=== PATIENT | male | born 1960 | race African-American/Black ===

== ENCOUNTER 2016-12-19 10:35 | Emergency (ER) | payer SELFPAY ==
[~2016-12-19] VITALS: Ht 185.4 cm; Wt 74.8 kg
[~2016-12-19 10:35] MED LIST: FAMO-63 PO; HYDR-971 PO; ONDA4TAB10 SL
--- NOTE | 2016-12-19 11:58 | RAD ---
Indication injury 2 weeks previously. Persistent head and neck pain. The head and cervical spine were evaluated. Images of cervical spine were reformatted in the coronal and sagittal planes. Note is made of a previous examination of the head [address] head: Findings The calvarium appears unremarkable. The visualized paranasal sinuses appear normal. There is no subdural or epidural hematoma. Ventricles and sulci are normal. No mass or midline shift is seen. There is no hemorrhage. Acute intracranial finding is not seen. CT cervical spine: Findings. There are underlying emphysematous changes in the visualized lung apices. A significant soft tissue finding in the neck is not seen. There are moderately advanced spondylitic changes in the cervical spine. There is multilevel disc space narrowing. Large osteophytes are seen at multiple levels. There is a suggested protruding disc at C3-4 with an additional suggested protruding disc at C5-6. (If further imaging of the cervical spine is warranted an MRI examination could be obtained.) There is mild bilateral bony neural foraminal encroachment at C3-4 and on the right at C5-6 with slight bilateral foraminal encroachment at C6-7. An acute finding in the cervical spine is not seen. IMPRESSION: Significant spondylitic changes in the cervical spine. An acute bony finding is not seen. No acute finding seen intracranially PQRS Compliance Statement: One or more of the following individualized dose reduction techniques were utilized for this examination: 1. Automated exposure control 2. Adjustment of the mA and/or kV according to patient size 3. Use of iterative reconstruction technique
[2016-12-19] MEDS ORDERED: CYCL10TA2 PO (12:57)
[2016-12-19] MEDS ORDERED: NAPR250T2 PO (12:57)
[2016-12-19] MEDS ORDERED: ESCI10TA PO (12:57)
[2016-12-19 13:22] VITALS: BP 127/75
--- NOTE | 2016-12-19 16:14 | ED.ADGEN ---
Past Medical History Past Medical History: Asthma, P.U.D. Past Surgical History: Other Additional Past Surgical Histo: ABDOMINAL/STOMACH SURG(hole in stomach) Alcohol Use: Occasionally Drug Use: None Adult General Chief Complaint Chief Complaint: MULTIPLE COMPLAINTS HPI HPI Patient is a 56 year old man, history of asthma, who presents to the emergency department for evaluation from his Worker's Compensation physician with report of persistent headache and neck pain after being struck with a package on the left side of the head at work 13 days ago. Patient denies any loss of consciousness at the time, stating he immediately had a headache, and some neck pain, he states that he was evaluated initially by the physician, and then on 12 December, he states that he was still having headache and some neck pain, and came back in for reevaluation today, continues to have the same symptoms although he states the headache "is now all over the head", and he is experiencing blurry vision at times. Denies any weakness numbness or tingling, is complaining of pain throughout the left side of his neck radiating down into the left shoulder. Denies any previous symptoms, any other injuries, any drugs alcohol or cigarettes, any other complaints. He states that he cannot recall the size of the package or how high it was when it struck him. 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 Patient does not take any medications regular basis, is not taking any medications for pain prior to coming to the ED. He states he was previously treated with naproxen and cyclobenzaprine without relief. Patient smokes cigarettes daily, denies any drugs or alcohol. Review of Systems Review of Systems Constitutional: Denies fever or chills. [] Eyes: Denies change in visual acuity. [] HENT: Denies nasal congestion or sore throat. [] Respiratory: Denies cough or shortness of breath. [] Cardiovascular: Denies chest pain or edema. [] GI: Denies abdominal pain, nausea, vomiting, bloody stools or diarrhea. [] : Denies dysuria. [] Musculoskeletal: Denies back pain or joint pain. [] Integument: Denies rash. [] Neurologic: Denies focal weakness or sensory changes. [] Headache "all over the head", bilateral intermittent blurry vision. Endocrine: Denies polyuria or polydipsia. [] Lymphatic: Denies swollen glands. [] Psychiatric: Denies depression or anxiety. [] Allergies Allergies Allergies Coded Allergies Type Severity Reaction Last Updated Verified No Known Drug Allergies 02/27/16 No Physical Exam Physical Exam Constitutional: Well developed, well nourished, no acute distress, non-toxic appearance. [] HENT: Normocephalic, atraumatic, bilateral external ears normal, oropharynx moist, no oral exudates, nose normal. [] Eyes: PERRLA, EOMI, conjunctiva normal, no discharge. [] Neck: Normal range of motion, patient with tenderness to palpation throughout the left paraspinal muscles, also less midline, no crepitus or step-offs are identified c-collar placed and patient complaints, no stridor. [] Cardiovascular:Heart rate regular rhythm, no murmur, S1, S2, rubs or gallops. [] Lungs & Thorax: Bilateral breath sounds clear to auscultation, no wheezing, rhonchi, rales. No chest tenderness or crepitus. [] Abdomen: Bowel sounds normal, soft, no tenderness, no masses, no pulsatile masses. [] Skin: Warm, dry, no erythema, no rash. [] Back: No tenderness, no CVA tenderness. [] Extremities: No tenderness, no cyanosis, no clubbing, ROM intact, no edema. [] Neurologic: Alert and oriented X 3, normal motor function, normal sensory function, no focal deficits noted. [] Psychologic: Affect normal, judgement normal, mood normal. [] Visual acuity: 20/70 bilaterally, no change in the mild blurry vision from eye to eye. Patient does not wear glasses but it has been sometime since a eye exam was performed. Current Patient Data Vital Signs Vital Signs Date Time Temp Pulse Resp B/P Pulse Ox O2 Delivery O2 Flow Rate FiO2 12/19/16 13:22 59 18 127/75 98 Room Air 12/19/16 10:47 98.2 98.2 EKG EKG Not indicated. [] Radiology/Procedures Radiology/Procedures [] [facility] [address] [place] [address] IMAGING REPORT Signed PATIENT: KENISHA GIBBONS ACCOUNT: [id number] : 1960 LOCATION: ER AGE: 56 SEX: M EXAM STATUS: REG ER ORD. PHYSICIAN: PHIL MURO DO REASON: HODGE/blurred vision after head injury 12/06 PROCEDURE: HEAD AND CERVICAL SPINE WO Indication injury 2 weeks previously. Persistent head and neck pain. The head and cervical spine were evaluated. Images of cervical spine were reformatted in the coronal and sagittal planes. Note is made of a previous examination of the head [address] head: Findings The calvarium appears unremarkable. The visualized paranasal sinuses appear normal. There is no subdural or epidural hematoma. Ventricles and sulci are normal. No mass or midline shift is seen. There is no hemorrhage. Acute intracranial finding is not seen. CT cervical spine: Findings. There are underlying emphysematous changes in the visualized lung apices. A significant soft tissue finding in the neck is not seen. There are moderately advanced spondylitic changes in the cervical spine. There is multilevel disc space narrowing. Large osteophytes are seen at multiple levels. There is a suggested protruding disc at C3-4 with an additional suggested protruding disc at C5-6. (If further imaging of the cervical spine is warranted an MRI examination could be obtained.) There is mild bilateral bony neural foraminal encroachment at C3-4 and on the right at C5-6 with slight bilateral foraminal encroachment at C6-7. An acute finding in the cervical spine is not seen. IMPRESSION: Significant spondylitic changes in the cervical spine. An acute bony finding is not seen. No acute finding seen intracranially PQRS Compliance Statement: One or more of the following individualized dose reduction techniques were utilized for this examination: 1. Automated exposure control 2. Adjustment of the mA and/or kV according to patient size 3. Use of iterative reconstruction technique DICTATED and SIGNED BY: SHUKRI RICKS MD DATE: 12/19/16 1145 CC: PHIL MURO DO; NO PCP ~ Course & Med Decision Making Course & Med Decision Making Pertinent Labs and Imaging studies reviewed. (See chart for details) Due to patient's complaints and the persistence of the symptoms, with mechanism injury, c-collar was placed, and patient received CT of the head and neck after discussion of risk versus benefit. CT of head and neck did not reveal any evidence of acute abdomen abnormalities, patient noted to have some degenerative disease of the spine. Results were discussed with patient and detailed bedside. C-collar was cleared. I discussed findings as above with Dr. Desai of neurology, patient's symptoms are consistent with a postconcussive syndrome, he states that he recommends following up with the patient's Worker's Compensation physician for referral to vestibular physical therapy, and starting the patient on Escitalopram 10 mg to assist with symptoms. I did discuss these recommendations with the patient at bedside in detail, patient is agreeable to starting the medication, using a conjunction with naproxen and cyclobenzaprine as needed, and following up with the Worker's Compensation physician for referral and additional evaluation as he'll require their clearance before returning to work. Patient discharged home in stable condition with recommendations as above along with precautions, which she voiced understanding and agreement, patient ambulating without difficulty upon exiting the ED. Dragon Disclaimer Dragon Disclaimer This electronic medical record was generated, in whole or in part, using a voice recognition dictation system. Departure Impression: Primary Impression: Post concussion syndrome Disposition: 01 HOME, SELF-CARE Condition: STABLE Scripts Escitalopram Oxalate 10 Mg Tablet1 Tab PO DAILY postconcussive headache #30 TAB Ref 0 Prov:PHIL MURO DO 12/19/16 Naproxen 250 Mg [id number] Mg PO BID PRN PAIN #10 Prov:PHIL MURO DO 12/19/16 Cyclobenzaprine Hcl 10 Mg [id number] Mg PO TID PRN MUSCLE PAIN #14 TAB Prov:PHIL MURO DO 12/19/16 PHIL MURO DO Dec 19, 2016 16:14
== END 2016-12-19 13:23 | disposition home or self-care (01) ==
LOC: ER 10:35
DX: F07.81 Postconcussional syndrome (principal); J45.909 Unspecified asthma, uncomplicated; F17.210 Nicotine dependence, cigarettes, uncomplicated
CPT/HCPCS: 70450; 72125; 99284-25

== ENCOUNTER → 2019-05-28 | Outpatient (CLI) | payer OTHER ==
[~2019-05-28] MED LIST changes: +CYCL10TA2 PO; +ESCITALOPRAM OX10 MG PO; +HYDR-3164 PO; -HYDR-971 PO; +NAPR250T6 PO
[2019-05-28 12:56] LABS: BASO # 0.1 x10^3/uL (0.0-0.2); BASO % 1 % (0-3); EOS # 0.2 x10^3/uL (0.0-0.7); EOS % 2 % (0-3); HEMATOCRIT 51.2 % (39.0-53.0); HEMOGLOBIN 17.3 g/dL (13.0-17.5); LYMPH # 2.5 x10^3/uL (1.0-4.8); LYMPH % 23 % (24-48); MEAN CORPUSCULAR HEMOGLOBIN 30 pg (25-35); MEAN CORPUSCULAR HGB CONC 34 g/dL (31-37); MEAN CORPUSCULAR VOLUME 90 fL (79-100); MONO # 0.6 x10^3/uL (0.0-1.1); MONO % 5 % (0-9); NEUT # 7.5 x10^3uL (1.8-7.7); NEUT % 69 % (31-73); PLATELET COUNT 143 x10^3/uL (140-400); RED BLOOD COUNT 5.71 x10^6/uL (4.30-5.70); RED CELL DISTRIBUTION WIDTH 14.3 % (11.5-14.5); WHITE BLOOD COUNT 10.8 x10^3/uL (4.0-11.0)
[2019-05-28 13:10] LABS: ALBUMIN 3.8 g/dL (3.4-5.0); ALBUMIN/GLOBULIN RATIO 1.1 (1.0-1.7); GFR 93.2; POTASSIUM 4.3 mmol/L (3.5-5.1); TOTAL BILIRUBIN 0.7 mg/dL (0.2-1.0); TOTAL PROTEIN 7.2 g/dL (6.4-8.2)
== END | disposition home or self-care (01) ==
LOC: LAB 12:18
PROVIDERS: ATTEND Psychiatry & Neurology Neurology with Special Qualifications in Child Neurology
DX: G44.309 Post-traumatic headache, unspecified, not intractable (principal)
CPT/HCPCS: 36415; 80053; 85025; 85651

== ENCOUNTER 2022-03-15 15:46 | Emergency (ER) | payer MEDICAID, OTHER ==
[~2022-03-15] VITALS: Ht 180.3 cm; Wt 72.7 kg
[~2022-03-15 15:46] MED LIST changes: +CYCL10TA19 PO; -CYCL10TA2 PO; +NAPR-699 PO; -NAPR250T6 PO
[2022-03-15 17:11] LABS: BASO % 1 % (0-3); EOS # 0.9 x10^3/uL (0.0-0.7); EOS % 12 % (0-3); HEMATOCRIT 51.6 % (39.0-53.0); HEMOGLOBIN 17.2 g/dL (13.0-17.5); LYMPH # 1.8 x10^3/uL (1.0-4.8); LYMPH % 23 % (24-48); MEAN CORPUSCULAR HEMOGLOBIN 29 pg (25-35); MEAN CORPUSCULAR HGB CONC 33 g/dL (31-37); MEAN CORPUSCULAR VOLUME 88 fL (79-100); MONO # 0.5 x10^3/uL (0.0-1.1); MONO % 7 % (0-9); NEUT # 4.4 x10^3/uL (1.8-7.7); NEUT % 57 % (31-73); PLATELET COUNT 137 x10^3/uL (140-400); RED BLOOD COUNT 5.86 x10^6/uL (4.30-5.70); RED CELL DISTRIBUTION WIDTH 13.1 % (11.5-14.5); WHITE BLOOD COUNT 7.8 x10^3/uL (4.0-11.0)
[2022-03-15 17:30] LABS: ALBUMIN/GLOBULIN RATIO 1.1 (1.0-1.7); CALCIUM 9.3 mg/dL (8.5-10.1); CREATININE 1.2 mg/dL (0.7-1.3); POTASSIUM 4.2 mmol/L (3.5-5.1); TOTAL BILIRUBIN 0.5 mg/dL (0.2-1.0); TOTAL PROTEIN 7.7 g/dL (6.4-8.2)
[2022-03-15] MEDS ORDERED: IPRATRPIUM/ALBUTEROL 0.5/2.5MG 3 ML NEBU. NEB ONE (17:45)
[2022-03-15] MEDS ORDERED: methylPREDNISolone SOD SUCC PF 125 MG/2 ML VIAL. IV ONE (17:45)
--- NOTE | 2022-03-15 18:16 | RAD ---
AP chest. HISTORY: Short of air, wheezing AP view was taken of the chest. There is no pneumothorax or pleural effusion. Lungs are clear. Heart is normal in size. There is arthritis in the shoulders more on the right than on the left. IMPRESSION: 1. No acute chest disease. Electronically signed by: Woodrow Reeder MD (03/15/2022 6:13 PM) [facility]
--- NOTE | 2022-03-15 18:25 | PHYS DOC ---
Past Medical History Past Medical History: Asthma, P.U.D. Past Surgical History: Other Additional Past Surgical Histo: ABDOMINAL/STOMACH SURG(hole in stomach) Smoking Status: Unknown if ever smoked Alcohol Use: Sober Drug Use: None General Adult EDM: Chief Complaint: WEAKNESS/GENERALIZED HPI: HPI: Patient is a 61 year old male who presents with cough " for a long time" with inspiratory expiratory wheezing and green mucus production. Patient states has been using all 3 of his inhalers at home. He is having generalized weakness. He denies chest pain, abdominal pain, nausea, vomiting, diarrhea, dizziness, headache, syncope, fever, numbness or tingling, focal weakness. He has a history of concussion, hypertension, high cholesterol, COPD, smoking, PUD. Review of Systems: Review of Systems: Constitutional: Denies fever or chills. [] Eyes: Denies change in visual acuity. [] HENT: +nasal congestion or denies sore throat. [] Respiratory: +cough or +shortness of breath. [] Cardiovascular: Denies chest pain or edema. [] GI: Denies abdominal pain, nausea, vomiting, bloody stools or diarrhea. [] : Denies dysuria. [] Musculoskeletal: Denies back pain or joint pain. +Generalized weakness[] Integument: Denies rash. [] Neurologic: Denies headache, focal weakness or sensory changes. [] Endocrine: Denies polyuria or polydipsia. [] Lymphatic: Denies swollen glands. [] Psychiatric: Denies depression or anxiety. [] Heart Score: C/O Chest Pain: No HEART Score for Chest Pain: HEART Score for Chest Pain Response (Comments) Value History Slighlty/Non-Suspicious 0 ECG Nonspecific Repolarizatio 1 Age >45 - < 65 1 Risk Factors 1 or 2 Risk Factors 1 Troponin < Normal Limit 0 Total 3 Risk Factors: Risk Factors: DM, Current or recent (<one month) smoker, HTN, HLP, family history of CAD, obesity. Risk Scores: Score 0 - 3: 2.5% MACE over next 6 weeks - Discharge Home Score 4 - 6: 20.3% MACE over next 6 weeks - Admit for Clinical Observation Score 7 - 10: 72.7% MACE over next 6 weeks - Early Invasive Strategies Current Medications: Current Medications Medications (Trade) Dose Ordered Sig/Emilie Start Time Stop Time Status Last Admin Dose Admin Albuterol/ Ipratropium (Duoneb) 6 ml 1X ONCE 03/15/22 17:45 03/15/22 17:46 DC 03/15/22 17:51 6 ML Methylprednisolone Sodium Succinate (SOLU-Medrol 125MG VIAL) 125 mg 1X ONCE 03/15/22 17:45 03/15/22 17:46 DC Allergies: Allergies: Allergies Coded Allergies Type Severity Reaction Last Updated Verified No Known Drug Allergies 02/27/16 No Physical Exam: PE: Constitutional: Well developed, well nourished, no acute distress, non-toxic appearance. [] HENT: Normocephalic, atraumatic, bilateral external ears normal, oropharynx moist, no oral exudates, nose normal. [] Eyes: PERRLA, EOMI, conjunctiva normal, no discharge. [] Neck: Normal range of motion, no tenderness, supple, no stridor. [] Cardiovascular:Heart rate regular rhythm, no murmur [] Lungs & Thorax: Bilateral breath sounds inspiratory expiratory wheezing and lower lobes diminished to auscultation [] Abdomen: Bowel sounds normal, soft, no tenderness, no masses, no pulsatile masses. [] Skin: Warm, dry, no erythema, no rash. [] Back: No tenderness, no CVA tenderness. [] Extremities: No tenderness, no cyanosis, no clubbing, ROM intact, no edema. [] Neurologic: Alert and oriented X 3, normal motor function, normal sensory function, no focal deficits noted. [] Psychologic: Affect normal, judgement normal, mood normal. [] Current Patient Data: Labs: Laboratory Tests Test 03/15/22 16:53 White Blood Count 7.8 x10^3/uL (4.0-11.0) Red Blood Count 5.86 x10^6/uL (4.30-5.70) H Hemoglobin 17.2 g/dL (13.0-17.5) Hematocrit 51.6 % (39.0-53.0) Mean Corpuscular Volume 88 fL (79-100) Mean Corpuscular Hemoglobin 29 pg (25-35) Mean Corpuscular Hemoglobin Concent 33 g/dL (31-37) Red Cell Distribution Width 13.1 % (11.5-14.5) Platelet Count 137 x10^3/uL (140-400) L Neutrophils (%) (Auto) 57 % (31-73) Lymphocytes (%) (Auto) 23 % (24-48) L Monocytes (%) (Auto) 7 % (0-9) Eosinophils (%) (Auto) 12 % (0-3) H Basophils (%) (Auto) 1 % (0-3) Neutrophils # (Auto) 4.4 x10^3/uL (1.8-7.7) Lymphocytes # (Auto) 1.8 x10^3/uL (1.0-4.8) Monocytes # (Auto) 0.5 x10^3/uL (0.0-1.1) Eosinophils # (Auto) 0.9 x10^3/uL (0.0-0.7) H Basophils # (Auto) 0.0 x10^3/uL (0.0-0.2) Sodium Level 138 mmol/L (136-145) Potassium Level 4.2 mmol/L (3.5-5.1) Chloride Level 101 mmol/L (98-107) Carbon Dioxide Level 28 mmol/L (21-32) Anion Gap 9 (6-14) Blood Urea Nitrogen 18 mg/dL (8-26) Creatinine 1.2 mg/dL (0.7-1.3) Estimated GFR (Cockcroft-Gault) 75.0 BUN/Creatinine Ratio 15 (6-20) Glucose Level 93 mg/dL (70-99) Calcium Level 9.3 mg/dL (8.5-10.1) Magnesium Level 2.3 mg/dL (1.8-2.4) Total Bilirubin 0.5 mg/dL (0.2-1.0) Aspartate Amino Transferase (AST) 21 U/L (15-37) Alanine Aminotransferase (ALT) 19 U/L (16-63) Alkaline Phosphatase 80 U/L (46-116) Troponin I High Sensitivity 7 ng/L (4-75) Total Protein 7.7 g/dL (6.4-8.2) Albumin 4.0 g/dL (3.4-5.0) Albumin/Globulin Ratio 1.1 (1.0-1.7) Laboratory Tests 03/15/22 16:53 Laboratory Tests 03/15/22 16:53 Vital Signs: Vital Signs Date Time Temp Pulse Resp B/P (MAP) Pulse Ox O2 Delivery O2 Flow Rate FiO2 03/15/22 16:56 98.8 64 18 113/66 (82) 100 Room Air 98.8 EKG: EK and read by Dr. Acsota is a sinus rhythm with ventricular premature complexes but no STEMI Radiology/Procedures: Radiology/Procedures: [] Impression: [place] [id number] IMAGING REPORT Signed PATIENT: KENISHA MENSAH ACCOUNT: [id number] : 1960 LOCATION: ER AGE: 61 SEX: M EXAM STATUS: REG ER ORD. PHYSICIAN: JOSE TELLO APRN REASON: soa, wheezing PROCEDURE: PORTABLE CHEST 1V AP chest. HISTORY: Short of air, wheezing AP view was taken of the chest. There is no pneumothorax or pleural effusion. Lungs are clear. Heart is normal in size. There is arthritis in the shoulders more on the right than on the left. IMPRESSION: 1. No acute chest disease. Electronically signed by: Woodrow Reeder MD (03/15/2022 6:13 PM) [facility] DICTATED and SIGNED BY: WOODROW REEDER MD DATE: 03/15/221811 [address] [address] IMAGING REPORT Signed PATIENT: KENISHA MENSAH ACCOUNT: [id number] : 1960 LOCATION: ER AGE: 61 SEX: M EXAM STATUS: REG ER ORD. PHYSICIAN: JOSE TELLO APRN REASON: dizziness PROCEDURE: CT HEAD WO CONTRAST Exam: CT head INDICATION: Dizziness TECHNIQUE: Sequential axial images through the head were obtained without the ad ministration of IV contrast. Exposure: One or more of the following in the visualized dose reduction techniques were utilized for this examination: 1. Automated exposure control 2. Adjustment of the MA and/or KV according to patient size 3. Use of iterative of reconstructive technique Comparisons: None FINDINGS: No focal parenchymal lesion or hemorrhage is identified. There is no midline sh ift or sulcal effacement. No acute vascular territory infarction is identified. Blackman-white distinction is preserved. The ventricular system is within normal limits without compression hydrocephalus. The basal cisterns are well maintained. The visualized portions of the paranasal sinuses and mastoid air cells are well- pneumatized. No acute fractures. IMPRESSION: No acute intracranial abnormality. Electronically signed by: Samuel Sawyer MD (03/15/2022 8:05 PM) [facility] DICTATED and SIGNED BY: SAMUEL SAWYER MD DATE: 03/15/222000 Course & Med Decision Making: Course & Med Decision Making Pertinent Labs and Imaging studies reviewed. (See chart for details) COVID-19 CRITERIA: The patient was evaluated during the global COVID-19 pandemic, and that diagnosis was suspected/considered upon their initial presentation. Their evaluation, treatment and testing was consistent with current guidelines for patients who present with complaints or symptoms that may be related to COVID-19. See HPI. Alert and oriented x4. Ambulatory steady gait. Speaks in full clear sentences. Inspiratory expiratory wheezing in upper lobes and bilateral lower lobes are diminished. Postnasal drip. Afebrile. No extremity edema. Vital signs are within normal limits. He is not hypoxic or in any respiratory distr ess. Patient was given 2 DuoNeb's and states he has feeling better. He is also given Solu-Medrol IV. Patient's blood work is unremarkable. He is not hypoxic and his vital signs within normal limits. I walk in the room and he is sleeping and then wakes up and I am letting him know that he will be sent home. He then states what about my dizziness. Patient never told me that he was dizzy. Anusha shah's daughter states that they told the nurse when they first got here. I have now ordered a CT of the head and meclizine. Finger nose Finger intact. moving all extremities equally with equal strengths. CT of head came back with no acute findings. Patient is also given 500ml normal saline bag of fluid. Patient is up and walking and states that he feels better and is not dizzy. I had Dr. Jerome go in the room and he then tells Dr. Jerome that he has had this itchy rash to his abdomen area that is chronic and has had for very long time. Patient will be placed on azithromycin for his respiratory infection, Medrol Dosepak, ProAir inhaler, Bactrim. Patient is discharged home. [] Smooth Disclaimer: Smooth Disclaimer: This electronic medical record was generated, in whole or in part, using a voice recognition dictation system. COVID-19 Patient Risks: Age 65 or older: No Sign of co-morbidity: Yes Exp to person + for COVID: No Exp to PUI: No Travel from affected area: No Lower respiratory symptoms: Yes Fever: No Other: No PPE Use: Full PPE with N95 mask or PAPR: Yes NIHSS Stroke Scale NIH Stroke Scale: NIH Stroke Scale Response (Comments) Value Level of Consciousness: 0 Alert/Responsive 0 LOC Questions: 0 Answers both correctly 0 LOC Commands: 0 Performs both tasks 0 Best Gaze: 0 Normal 0 Visual: 0 No visual loss 0 Facial Palsy: 0 Normal, symmetrical 0 Motor - Left Arm 0 No drift 0 Motor - Right Arm 0 No drift 0 Motor - Left Leg 0 No drift 0 Motor: Right Leg 0 No drift 0 Limb Ataxia: 0 Absent 0 Sensory: 0 No loss 0 Best Language: 0 Normal 0 Dysathria: 0 Normal 0 Extinction and Inattention: 0 Normal 0 Total 0 Departure Departure Impression: Primary Impression: COPD exacerbation Additional Impression: Rash and nonspecific skin eruption Disposition: 01 HOME / SELF CARE / HOMELESS Condition: STABLE Referrals: NO PCP (PCP) Patient Instructions: Chronic Obstructive Pulmonary Disease Exacerbation, Dizziness Additional Instructions: Follow-up with primary care provider soon as possible. If you are too dizzy to walk in a straight line or start having weakness on one side of your body or severe headache or vision changes you need to return to the emergency room. If you begin having severe shortness of breath and chest pain you should return to the emergency room. Take medications as prescribed and with food. Continue all your home medications. Scripts Sulfamethoxazole/Trimethoprim (BACTRIM DS TABLET) 1 Each Tablet 1 TAB PO BID for 7 Days, #14 TAB 0 Refills Prov: JOSE TELLO APRN 03/15/22 Triamcinolone Acetonide (TRIAMCINOLONE ACETONIDE 0.1% CREAM) 15 Gm Cream..g. 1 TORITO TP TID, #1 EACH Prov: JOSE TELLO APRN 03/15/22 Azithromycin (AZITHROMYCIN TABLET) 250 Mg Tablet 1 PKG PO UD for 5 Days, #6 TAB 0 Refills 2 the first day followed by 1 for days 2-5 Prov: JOSE TELLO GLOBAL MANAGER 03/15/22 Methylprednisolone (MEDROL) 4 Mg Tab.ds.pk 1 PKG PO UD, #1 PKG Prov: BAFJOSE VELEZ GLOBAL MANAGER 03/15/22 Albuterol Sulfate (PROAIR HFA INHALER) 8.5 Gm Hfa.aer.ad 2 PUFF IH PRN Q4-6HRS PRN for wheezing for 21 Days, #1 INHALER 0 Refills Prov: JOSE TELLO GLOBAL MANAGER 03/15/22 JOSE TELLO GLOBAL MANAGER Mar 15, 2022 18:25
[2022-03-15 19:06] LABS: AMPHETAMINE/METHAMPHETAMINE NEG (NEG); BARBITURATES NEG (NEG); BENZODIAZEPINES NEG (NEG); CANNABINOIDS POS (NEG); COCAINE NEG (NEG); METHADONE NEG (NEG); OPIATES NEG (NEG); PHENCYCLIDINE NEG (NEG)
[2022-03-15 19:07] LABS: BACTERIA,URINE 0 /HPF (0-FEW); WBC,URINE OCC /HPF (0-4)
[2022-03-15 19:14] LABS: INFLUENZA A PATIENT NEGATIVE (NEGATIVE); INFLUENZA B PATIENT NEGATIVE (NEGATIVE)
[2022-03-15] MEDS ORDERED: MECLIZINE HCL 12.5 MG TABLET. PO ONE (19:45)
[2022-03-15] MEDS ORDERED: IV NORMAL SALINE 500ML BAG 500 ML IV ONE (19:45)
--- NOTE | 2022-03-15 20:07 | RAD ---
Exam: CT head INDICATION: Dizziness TECHNIQUE: Sequential axial images through the head were obtained without the administration of IV co ntrast. Exposure: One or more of the following in the visualized dose reduction techniques were utilized for this examination: 1. Automated exposure control 2. Adjustment of the MA and/or KV according to patient size 3. Use of iterative of reconstructive technique Comparisons: None FINDINGS: No focal parenchymal lesion or hemorrhage is identified. There is no midline shift or sulcal effaceme nt. No acute vascular territory infarction is identified. Blackman-white distinction is preserved. The ventricular system is within normal limits without compression hydrocephalus. The basal cisterns are well maintained. The visualized portions of the paranasal sinuses and mastoid air cells are well-pneumatized. No acute fractures. IMPRESSION: No acute intracranial abnormality. Electronically signed by: Samuel Lynch MD (03/15/2022 8:05 PM) [facility]
[2022-03-15] MEDS ORDERED: ALBU2.5V8 IH (21:01)
[2022-03-15] MEDS ORDERED: METH4TAB2 PO (21:01)
[2022-03-15] MEDS ORDERED: AZIT250T6 PO (21:01)
[2022-03-15] MEDS ORDERED: SULF1TAB24 PO (21:04)
[2022-03-15] MEDS ORDERED: TRIA15CR3 TP (21:04)
[2022-03-15 21:15] VITALS: BP 101/73
== END 2022-03-15 21:30 | disposition home or self-care (01) ==
LOC: ER 15:46
DX: J44.1 Chronic obstructive pulmonary disease with (acute) exacerbation (principal); R21 Rash and other nonspecific skin eruption; J45.909 Unspecified asthma, uncomplicated; Z87.11 Personal history of peptic ulcer disease; Z20.822 Contact with and (suspected) exposure to COVID-19
CPT/HCPCS: 36415; 70450; 71045; 80053; 80307; 81001; 83735; 83880; 84484; 85025; 87428; 94640; 96361; 96374; 99285; J2930; J7040; J8597